=== PATIENT | female | born 1990 | race American Indian/Alaskan Native ===

== ENCOUNTER 2020-09-25 08:20 | Outpatient (CLI) | payer MEDICAID, OTHER ==
--- NOTE | 2020-09-25 09:35 | Ultrasound Report ---
ULTRASOUND BREAST BILATERAL COMPLETE, 09/25/2020 CLINICAL INFORMATION / INDICATION: MASTODYNIA. Patient presents for bilateral complete breast ultraso und prior to scheduled breast lift. Patient has no current complaints. TECHNIQUE: Complete sonographic evaluation of all 4 quadrants and retroareolar region was performed. COMPARISON: None. FINDINGS: Right breast: Complete ultrasound of the right breast reveals normal fibroglandular tissue. No suspic ious cystic or solid lesion identified. Left breast: Complete ultrasound of the left breast reveals normal fibroglandular tissue and an incid ental benign intramammary lymph node in the left axillary tail. No suspicious cystic or solid lesion identified. IMPRESSION: 1. No suspicious sonographic abnormality identified in either breast. Follow up recommendation: Unless otherwise clinically indicated, recommend patient return to routine screening mammography at age 42. BI-RADS Category 2: Benign. A normal or "negative" report should not preclude biopsy or follow-up of a clinically suspicious find ing. Signer Name: Rachel Magana MD Signed: 09/25/2020 9:30 AM Workstation Name: [id number]
== END 2020-09-25 08:21 | disposition home or self-care (01) ==
LOC: US 08:20
PROVIDERS: ATTEND Advanced Practice Midwife
DX: N64.4 Mastodynia (principal)